=== PATIENT | female | born 1965 | race Caucasian/White ===

== ENCOUNTER → 2018-05-28 | Outpatient (CLI) | payer BC ==
[~2018-05-28] MED LIST: ESTR1TAB24; NAPR550T PO; NAPROXEN; ORPH100T PO
--- NOTE | 2018-05-28 12:38 | Diagnostic Imaging Report ---
INDICATION: Routine screening. COMPARISON: 01/08/2012. TECHNIQUE: 2D and 3D bilateral screening mammography was performed with CAD. FINDINGS: Scattered fibroglandular densities are identified bilaterally. The parenchymal pattern is stable. No dominant mass or malignant appearing microcalcifications are seen. The circumscribed benign nodule in the upper outer left breast is stable. The axillae are unremarkable. IMPRESSION: No mammographic features suspicious for malignancy are identified. ACR BI-RADS Category 2: Benign findings. Result letter will be mailed to the patient. Note: At least 10% of breast cancer is not imaged by mammography. Dictated by: Dictated on workstation # [id number]
== END ==
LOC: RAD 07:31
PROVIDERS: ATTEND Registered Nurse
DX: Z12.31 Encounter for screening mammogram for malignant neoplasm of breast (principal)
CPT/HCPCS: 77067

== ENCOUNTER 2019-05-26 05:33 | Outpatient (CLI) | payer BC ==
[~2019-05-26] VITALS: Ht 152.4 cm; Wt 104.1 kg
[2019-05-26] MEDS ORDERED: DULO20CA19 PO (13:18)
[2019-05-26] MEDS ORDERED: CHOL200014 PO (13:18)
[2019-05-26] MEDS ORDERED: CYAN-41 PO (13:18)
[2019-05-26] MEDS ORDERED: FAMO20TA3 PO (13:18)
== END 2019-05-26 13:21 ==
LOC: PREOP 05:33
PROVIDERS: ATTEND Surgery
DX: Z01.818 Encounter for other preprocedural examination (principal)

== ENCOUNTER 2019-06-02 07:13 | Day surgery (SDC) | payer BC ==
[~2019-06-02] VITALS: Ht 152.4 cm; Wt 104.1 kg
[2019-06-02] VITALS (9 sets, daily range): BP systolic 126–141; BP diastolic 76–82
[~2019-06-02 07:13] MED LIST changes: +CHOL200014 PO; +CYAN-41 PO; +DULO20CA19 PO; +FAMO20TA3 PO
[2019-06-02] MEDS ORDERED: MIDAZOLAM 2 MG/2 ML (VERSED) VIAL ONE (07:26)
[2019-06-02] MEDS ORDERED: PROPOFOL INJECTION 50 ML IV ONE (07:26)
[2019-06-02] MEDS ORDERED: LACTATED RINGERS 1,000 ML IV ONE (07:44)
[2019-06-02] MEDS ORDERED: LACTATED RINGERS 1,000 ML IV PRN (08:00)
--- NOTE | 2019-06-02 08:13 | Progress Note-Pre Operative ---
Pre-Operative Progress Note H&P Reviewed The H&P was reviewed, patient examined and no changes noted. Time Seen by Provider: 08:07 Date H&P Reviewed: Jun 02, 2019 Time H&P Reviewed: 08:06 Pre-Operative Diagnosis: Screening colonoscopy ESTEE VILLELA DO Jun 02, 2019 08:13 POS
--- NOTE | 2019-06-02 10:10 | Progress Note-Post Operative ---
Post-Operative Progess Note Surgeon (s)/Director Camp (s) Surgeon ESTEE VILLELA DO Director Camp: AVERY Baum Pre-Operative Diagnosis Screening colonoscopy Post-Operative Diagnosis Colon polyps diverticula Internal hemorrhoids Procedure & Operative Findings Date of Procedure 06/02/19 Procedure Performed/Findings Colon with snare Anesthesia Type IV sedation by TAR LEVELER Estimated Blood Loss Estimated blood loss (mL): scant Specimens/Packing Specimens Removed Asc colon Desc colon Sigmoid polyp ESTEE VILLELA DO Jun 02, 2019 10:10 POS
--- NOTE | 2019-06-02 10:11 | Endoscopy Discharge Instruct ---
Endo Procedure/Findings Findings 1.: Polyp 2.: Diverticulosis 3.: Internal Hemorrhoids Discharge Instructions - Activity: You might feel a little sleepy until tomorrow. This is due to the medicine you received to relax you. Until tomorrow, you should: NOT drive a car, operate machinery or power tools. NOT drink any alcoholic beverages. NOT make any important decisions or sign importortant papers. Do not return to work until tomorrow, unless otherwise instructed. Resume previous activities tomorrow. Diet: Start by taking liquids. If you tolerate liquids, advance to solid food. make appt for 2 weeks. 1.: Colonoscopy in 1 year Notify Physician - If you experience excessive bleeding, unusual abdominal pain, fever, or chest pain, contact your doctor immediately. ESTEE VILLELA DO Jun 02, 2019 10:11 POS
--- NOTE | 2019-06-02 14:09 | Anesthesia-General Post-Op ---
MAC Patient Condition Mental Status/LOC: Same as Preop Cardiovascular: Satisfactory Nausea/Vomiting: Absent Respiratory: Satisfactory Pain: Controlled Complications: Absent Post Op Complications Complications None Follow Up Care/Instructions Patient Instructions None needed. Anesthesiology Discharge Order Discharge Order Patient is doing well, no complaints, stable vital signs, no apparent adverse anesthesia problems. No complications reported per nursing. MONSTER LANGE CRNA Jun 02, 2019 14:09 POS
--- NOTE | 2019-06-03 03:44 | OPERATIVE REPORT ---
DATE OF SERVICE: PREOPERATIVE DIAGNOSES: History of colon polyps. POSTOPERATIVE DIAGNOSES: 1. Colon polyps. 2. Diverticular. 3. Internal hemorrhoids. PROCEDURE PERFORMED: Colonoscopy with snare polypectomy. SURGEON: José Manuel Fernandez DO ANESTHESIA: IV sedation by CHEMICAL ECONOMIST. SPECIMEN: One polyp from the ascending colon, one polyp from the descending colon and one polyp from the sigmoid colon. BLOOD LOSS: Scant. FLUIDS: Per anesthesia. POSTOPERATIVE CONDITION: Stable. INDICATION FOR PROCEDURE: The patient is a 53-year-old female who has a history of colon polyps, needed a surveillance colonoscopy. FINDINGS: The patient had one large polyp in the sigmoid colon. She had another large polyp in the ascending colon and another flat polyp in the descending colon as well as diverticula and some internal hemorrhoids. PROCEDURE NOTE: After informed consent was obtained, the patient was brought to the endoscopy suite and placed in the left lateral decubitus position. She was administered IV sedation by the CHEMICAL ECONOMIST who then monitored her vitals the entire time, heart rate, blood pressure and pulse ox and the scope was inserted. On the way, noted a large polyp in the sigmoid, elected to leave this for last and continued on, saw some diverticula on the way and took a picture of this and then able to get all the way to cecum, took a picture of appendiceal orifice, noted the ileocecal valve and then slowly withdrew the scope insufflating to look circumferentially at the tristan looking at the cecum and then up the ascending colon. In the ascending colon, saw another small polyp, did a snare polypectomy of this and then continued up to the hepatic flexure, then down the transverse colon and into the splenic flexure and then into the descending colon. In the descending colon, saw another polyp, did snare polypectomy of this and then continued down to the sigmoid, saw a large polyp again and had to take this in 2 bites because it was so big and then had to pull the scope all the way out to remove one of the polyps wouldn't suction up the channel and then pushed the scope back in and then pulled back slowly from the sigmoid into the rectum. Retroflexed in rectal vault, saw some minimal internal hemorrhoids, took a picture of this and then removed the scope. The patient tolerated the procedure, recovered in endoscopy suite. Job ID: [id number] DocumentID: [id number] Dictated Date: 06/02/2019 18:25:25 Mechanical Insulator Date: 06/03/2019 03:43:32 Dictated By: DO ELIN COULTER
--- OUTSIDE RECORDS SUMMARY | 2019-06-27 06:43 | XMS REPORT ---
Author Author Pilar [facility] Organization [facility] Address [address] [place] [address] Care Team Providers Care Rail Bender Name Role Phone BLAISEAida ELOISAMAYRA Unavailable PROBLEMS Type Condition ICD9-CM Code [id number] Code Onset Dates Condition S tatus SNOMED Code Problem Obesity (BMI 30-39.9) E66.9 Active 318848040 ALLERGIES No Known Allergies ENCOUNTERS Encounter Location Date Diagnosis [facility] [id number] [place] [address], [place] [id number] May, Obesity (BMI 30-39.9) E66.9 ; Tinea ungu ium B35.1 and Callus L84 [facility] [address] [address] Sep, [facility] [address] [address] Sep, [facility] [id number] [place] [address], [place] [id number] October, [facility] [id number] [place] [address], [place] [id number] Jun, [facility] [id number] [place] [address], [place] [id number] Jun, [facility] [id number] [place] [address], [place] [id number] May, [facility] [address] [address] May, [facility] [id number] [place] [phone] May, [facility] [id number] [place] [address], [place] [id number] May, [facility] [address] [facility] [id number] [address] [place] [phone] May, [facility] [address] [facility] [id number] [address] [place] [phone] May, [facility] [address] [id number] [place] [id number] May, [facility] [address] [id number] [address] [place] [phone] May, [facility] [address] [id number] [place], [place] [id number] Jan, [facility] [address] [id number] [place], [place] [id number] Jan, [facility] [address] [id number] [place], [place] [id number] Dec, [facility] [address] [id number] [place], [place] [id number] Dec, [facility] [address] [id number] [place], [place] [id number] Dec, [facility] [address] [id number] [place], [place] [id number] Dec, [facility] [address] [id number] [place], [place] [id number] Nov, [facility] [address] [id number] [place], [place] [id number] Jun, [facility] [address] [facility] [id number] [address] [place] [phone] May, [facility] [address] [facility] [id number] [address] [place] [phone] Apr, [facility] [address] [facility] [id number] [address] [place] [phone] Apr, [facility] [address] [facility] [id number] [address] [place] [phone] Apr, [facility] [address] [facility] [id number] [address] [place] [phone] Apr, [facility] [address] [facility] [id number] [address] [place] [phone] May, [facility] [address] [facility] [id number] [address] [place] [phone] Mar, IMMUNIZATIONS No Known Immunizations SOCIAL HISTORY Never Assessed REASON FOR VISIT Establish Care- Infection to left thumb nail, on-going since summer, Pt had what felt like a sting on left side 3 weeks, continues to have throbbing on that si Ramachandran MA PLAN OF CARE Activity Details Follow Up prn and as indicated by lab Reason: VITAL SIGNS Height 60 in 2017-05-29 Weight 199.4 lbs 2017-05-29 Temperature 97.4 degrees Fahrenheit 2017-05-29 Heart Rate 78 bpm 2017-05-29 Respiratory Rate 16 2017-05-29 BMI 38.94 kg/m2 2017-05-29 Blood pressure systolic 124 mmHg 2017-05-29 Blood pressure diastolic 78 mmHg 2017-05-29 MEDICATIONS Medication Instructions Dosage Frequency Start Date End Date Duration S tatus Omeprazole Magnesium 20 mg take 1 capsule by Oral rout e 1 time per day May, Active RESULTS No Results PROCEDURES Procedure Date Ordered Result Body Site COMPLETE CBC W/AUTO DIFF WBC May 29, 2017 LIPID PANEL May 29, 2017 COMPREHEN METABOLIC PANEL May 29, 2017 VENIPUNCT, ROUTINE* May 29, 2017 ASSAY THYROID STIM HORMONE May 29, 2017 INSTRUCTIONS MEDICATIONS ADMINISTERED No Known Medications MEDICAL (GENERAL) HISTORY Type Description Date Surgical History tonsillectomy and adenoidectomy Surgical History partial hysterectomy Surgical History oopherectomy Surgical History appendectomy Surgical History section
--- OUTSIDE RECORDS SUMMARY | 2019-06-27 06:43 | XMS REPORT ---
Author Author Pilar Bazzi Doctor Organization [facility] Address Unknown Phone Unavailable Care Team Providers Care Wildlife Officer Name Role Phone Migration, Doctor Unavailable Unavailable PROBLEMS Type Condition ICD9-CM Code [id number] Code Onset Dates Condition S tatus SNOMED Code Problem Obesity (BMI 30-39.9) E66.9 Active 884682425 ALLERGIES No Information ENCOUNTERS Encounter Location Date Diagnosis [facility] [id number] [place] [address], [place] [id number] Apr, Breast cancer screening Z12.31 [facility] [id number] [place] [address], [place] S [id number] May, Obesity (BMI 30-39.9) E66.9 ; Tinea ungu ium B35.1 and Callus L84 [facility] [address] [address] Sep, [facility] [address] [address] Sep, [facility] [id number] [place] [address], [place] [id number] October, [facility] [id number] [place] [address], [place] [id number] Jun, [facility] [id number] [place] [address], [place] S [id number] Jun, [facility] [id number] [place] [address], [place] [id number] May, [facility] [id number] [place] [phone] May, [facility] [address] [id number] [address] [place] [phone] May, [facility] [id number] [place] [address], [place] [id number] May, [facility] [address] [id number] [address] [place] [phone] May, [facility] [address] [id number] [address] [place] [phone] May, [facility] [address] [id number] [place] [id number] May, [facility] [address] [id number] [address] [place] [phone] May, [facility] [address] [id number] [place], [place] [id number] Jan, [facility] [address] [id number] [place], [place] [id number] Jan, [facility] [address] [id number] [place], [place] [id number] Dec, [facility] [address] [id number] [place], [place] [id number] Dec, [facility] [address] [id number] [place], [place] [id number] Dec, [facility] [address] [id number] [place], [place] [id number] Dec, [facility] [address] [id number] [place], [place] [id number] Nov, [facility] [address] [id number] [place], [place] [id number] Jun, [facility] [address] [facility] [id number] [address] [place] [phone] May, [facility] [address] [facility] [id number] [address] [place] [phone] 30 Apr, 2011 [facility] [address] [facility] [id number] [address] [place] [phone] Apr, [facility] [address] [facility] [id number] [address] [place] [phone] Apr, [facility] [address] [facility] [id number] [address] [place] [phone] Apr, [facility] [address] [facility] [id number] [address] [address] May, [facility] [address] [facility] [id number] [address] [place] [phone] Mar, IMMUNIZATIONS No Known Immunizations SOCIAL HISTORY Never Assessed REASON FOR VISIT EMR-[facility] PLAN OF CARE VITAL SIGNS MEDICATIONS Medication Instructions Dosage Frequency Start Date End Date Duration S tatus Celexa 40 mg take 1 tablet (40 mg) by oral route once daily October, Active Omeprazole Magnesium 20 mg take 1 capsule by Oral rout e 1 time per day May, Active RESULTS No Results PROCEDURES No Known procedures INSTRUCTIONS MEDICATIONS ADMINISTERED No Known Medications MEDICAL (GENERAL) HISTORY Type Description Date Medical History Heartburn Medical History Disturbance of skin sensation Medical History Cervical spondylosis without myelopathy Medical History Obesity, unspecified Medical History Pain in joint, site unspecified Surgical History tonsillectomy and adenoidectomy Surgical History partial hysterectomy Surgical History oopherectomy Surgical History appendectomy Surgical History section
--- OUTSIDE RECORDS SUMMARY | 2019-06-27 06:43 | XMS REPORT ---
Author Author Pilar Bazzi Doctor Organization [facility] Address Unknown Phone Unavailable Care Team Providers Care Medical Physics Teacher Name Role Phone Migration, Doctor Unavailable Unavailable PROBLEMS Type Condition ICD9-CM Code ZKE37-FD Code Onset Dates Condition S tatus SNOMED Code Problem Obesity (BMI 30-39.9) E66.9 Active 449722326 ALLERGIES No Information ENCOUNTERS Encounter Location Date Diagnosis [facility] [id number] [place] [address], [place] [id number] Apr, Breast cancer screening Z12.31 [facility] [id number] [place] [address], [place] [id number] May, Obesity (BMI 30-39.9) E66.9 ; Tinea ungu ium B35.1 and Callus L84 [facility] [place] [address] [address] Sep, [facility] [place] [address] [id number] Sep, [facility] [id number] [place] [address], [place] S [id number] October, [facility] [id number] [place] [address], [place] S [id number] Jun, [facility] [id number] [place] [address], [place] S [id number] Jun, [facility] [id number] [place] [address], [place] S [id number] May, [facility] [place] [id number] [place] [address] May, [facility] [place] [address] [id number] [address] [place] [address] May, [facility] [id number] [place] [address], [place] [id number] May, [facility] [address] [id number] [address] [place] [phone] May, [facility] [address] [id number] [address] [place] [phone] May, [facility] [address] [id number] [place], [place] [id number] May, [facility] [address] [id number] [address] [place] [phone] May, [facility] [address] [id number] [place], [place] [id number] Jan, [facility] [address] [id number] [place], [place] [id number] Jan, [facility] [address] [id number] [place], [place] [id number] Dec, [facility] [address] [id number] [place], [place] [id number] Dec, [facility] [address] [id number] [place], [place] [id number] Dec, [facility] [address] [id number] [place], [place] [id number] Dec, [facility] [address] [id number] [place], [place] [id number] Nov, [facility] [address] [id number] [place], [place] [id number] Jun, [facility] [address] [facility] [id number] [address] [place] [phone] May, [facility] [address] [facility] [id number] [address] [place] [phone] 30 Apr, 2011 [facility] [address] [facility] [id number] [address] [place] [phone] Apr, [facility] [address] [facility] [id number] [address] [place] [phone] Apr, [facility] [address] [facility] [id number] [address] [place] [phone] Apr, [facility] [place] [address] [facility] [id number] [address] [place] [phone] May, [facility] [place] [address] [facility] [id number] [address] [place] [phone] Mar, IMMUNIZATIONS No Known Immunizations SOCIAL HISTORY Never Assessed REASON FOR VISIT EMR-[facility] PLAN OF CARE VITAL SIGNS MEDICATIONS No Known Medications RESULTS No Results PROCEDURES No Known procedures [...]
--- OUTSIDE RECORDS SUMMARY | 2019-06-27 06:43 | XMS REPORT ---
Author Author Pilar GRECO [facility] Address [address] [place] [address] Care Team Providers Care Director Medicaid Name Role Phone WANG GRECO Unavailable PROBLEMS Type Condition ICD9-CM Code TTY35-FZ Code Onset Dates Condition S tatus SNOMED Code Problem Obesity (BMI 30-39.9) E66.9 Active 239677721 ALLERGIES No Known Allergies ENCOUNTERS Encounter Location Date Diagnosis [facility] [id number] [place] [address], S [id number] Apr, Breast cancer screening Z12.31 [facility] [address], S [id number] May, Obesity (BMI 30-39.9) E66.9 ; Tinea ungu ium B35.1 and Callus L84 [facility] [address] [id number] Sep, [facility] [id number] [place] [phone] Sep, [facility] [id number] [place] [address], [place] [id number] October, [facility] [id number] [place] [address], [place] S [id number] Jun, [facility] [id number] [place] [address], [place] S [id number] Jun, [facility] [id number] [place] [address], [place] S [id number] May, [facility] [id number] [place] [phone] May, [facility] [id number] [place] [phone] May, [facility] [address] [id number] [place], [place] [id number] May, [facility] [address] [facility] [id number] [address] [place] [phone] May, [facility] [address] [facility] [id number] [address] [place] [phone] May, [facility] [address] [id number] [place], [place] [id number] May, [facility] [address] [id number] [address] [place] [phone] May, [facility] [address] [id number] [place], [place] [id number] Jan, [facility] [address] [id number] [place], [place] [id number] Jan, [facility] [address] [id number] [place], [place] [id number] Dec, [facility] [address] [id number] [place], [place] [id number] Dec, [facility] [address] [id number] [place], [place] [id number] Dec, [facility] [address] [id number] [place], [place] [id number] Dec, [facility] [address] [id number] [place], [place] [id number] Nov, [facility] [address] [id number] [place], [place] [id number] Jun, [facility] [address] [facility] [id number] [address] [place] [phone] May, [facility] [address] [facility] [id number] [address] [place] [phone] 30 Apr, 2011 [facility] [address] [facility] [id number] [address] [place] [phone] Apr, [facility] [address] [facility] [id number] [address] [place] [phone] Apr, [facility] [address] [facility] [id number] [address] [place] [phone] 07 Apr, 2011 [facility] [address] [facility] [id number] [address] [place] [id number] 17 May, 2010 [facility] [address] [facility] [id number] [address] [place] [id number] 13 Mar, 2010 IMMUNIZATIONS No Known Immunizations SOCIAL HISTORY Never Assessed REASON FOR VISIT Well Woman Exam- breast exam Corina GALICIA PLAN OF CARE Activity Details Follow Up pending DI/1 Year, prn Reaso n:WWE Pending Test Mammogram, Bilateral Screeni ng VITAL SIGNS Height 60 in 2018-05-20 Weight 187 lbs 2018-05-20 Temperature 97.2 degrees Fahrenheit 2018-05-20 Heart Rate 72 bpm 2018-05-20 Respiratory Rate 16 2018-05-20 BMI 36.52 kg/m2 2018-05-20 Blood pressure systolic 128 mmHg 2018-05-20 Blood pressure diastolic 78 mmHg 2018-05-20 MEDICATIONS No Known Medications RESULTS No Results [...]
== END 2019-06-02 10:30 | disposition home or self-care (01) ==
LOC: ENDO 07:13
PROVIDERS: ATTEND Surgery
DX: Z12.11 Encounter for screening for malignant neoplasm of colon (principal); D12.5 Benign neoplasm of sigmoid colon; K63.5 Polyp of colon; K57.30 Diverticulosis of large intestine without perforation or abscess without bleeding; K64.8 Other hemorrhoids; K21.9 Gastro-esophageal reflux disease without esophagitis; F17.210 Nicotine dependence, cigarettes, uncomplicated; Z90.89 Acquired absence of other organs; Z90.710 Acquired absence of both cervix and uterus; Z79.899 Other long term (current) drug therapy; Z82.49 Family history of ischemic heart disease and other diseases of the circulatory system
CPT/HCPCS: 88305

== ENCOUNTER → 2019-07-16 | Outpatient (CLI) | payer BC ==
--- NOTE | 2019-07-16 09:19 | Diagnostic Imaging Report ---
Indication: Routine screening. Comparison is made with prior mammogram from 05/28/2018. 2-D and 3-D bilateral screening mammography was performed with CAD. Scattered fibroglandular densities are identified bilaterally. Circumscribed lesion in the retroareolar left breast is stable. No new mass or malignant appearing microcalcifications are seen. Axillae are unremarkable. IMPRESSION: BI-RADS Category 2 No mammographic features suspicious for malignancy are identified. ACR BI-RADS Category 2: Benign findings. Result letter will be mailed to the patient. Note: At least 10% of breast cancer is not imaged by mammography. Dictated by: Dictated on workstation # [id number]
== END ==
LOC: RAD 07:44
PROVIDERS: ATTEND Registered Nurse
DX: Z12.31 Encounter for screening mammogram for malignant neoplasm of breast (principal)
CPT/HCPCS: 77067

== ENCOUNTER → 2020-07-19 | Outpatient (CLI) | payer BC ==
--- NOTE | 2020-07-19 15:21 | Diagnostic Imaging Report ---
INDICATION: Routine screening. COMPARISON: 07/16/2019 and 05/28/2018. TECHNIQUE: 2D and 3D bilateral screening mammography was performed with CAD. FINDINGS: Scattered fibroglandular densities are identified bilaterally. The parenchymal pattern is stable. No dominant mass or malignant appearing microcalcifications are seen. The axillae are unremarkable. IMPRESSION: No mammographic features suspicious for malignancy are identified. ACR BI-RADS Category 1: Negative. Result letter will be mailed to the patient. Note: At least 10% of breast cancer is not imaged by mammography. Dictated by: Dictated on workstation # [id number]
== END ==
LOC: RAD 09:16
PROVIDERS: ATTEND Student in an Organized Health Care Education/Training Program
DX: Z12.31 Encounter for screening mammogram for malignant neoplasm of breast (principal)
CPT/HCPCS: 77063; 77067

== ENCOUNTER → 2021-07-20 | Outpatient (CLI) | payer BC ==
--- NOTE | 2021-07-20 11:51 | Diagnostic Imaging Report ---
Indication: Routine screening. Comparison is made with prior mammogram from 07/19/2020 and 07/16/2019. 2-D and 3-D bilateral screening mammography was performed with CAD. Scattered fibroglandular densities are identified bilaterally. The parenchymal pattern is stable. No mass or malignant-appearing microcalcifications are seen. Axillae are unremarkable. IMPRESSION: BI-RADS Category 1 No mammographic features suspicious for malignancy are identified. ACR BI-RADS Category 1: Negative. Result letter will be mailed to the patient. Note: At least 10% of breast cancer is not imaged by mammography. Dictated by: Dictated on workstation # [id number]
== END ==
LOC: RAD 10:00
PROVIDERS: ATTEND Student in an Organized Health Care Education/Training Program
DX: Z12.31 Encounter for screening mammogram for malignant neoplasm of breast (principal)
CPT/HCPCS: 77063; 77067

== ENCOUNTER 2021-10-03 05:32 | Outpatient (CLI) | payer BC ==
[~2021-10-03] VITALS: Ht 152.4 cm; Wt 103.5 kg
[2021-10-03] MEDS ORDERED: OMEG-109 PO (10:10)
[2021-10-03] MEDS ORDERED: LACT1CAP39 PO (10:10)
[2021-10-03] MEDS ORDERED: ERGO1250 PO (10:10)
[2021-10-03] MEDS ORDERED: MELO-170 PO (10:10)
[2021-10-05] MEDS ORDERED: ACHD5005 PO (17:17)
== END 2021-10-03 10:23 ==
LOC: PREOP 05:32
PROVIDERS: ATTEND Surgery
DX: Z01.818 Encounter for other preprocedural examination (principal)

== ENCOUNTER 2021-10-05 10:53 | Day surgery (SDC) | payer BC ==
[2021-10-05] VITALS (10 sets, daily range): BP systolic 115–136; BP diastolic 60–81
[~2021-10-05] VITALS: Ht 152.4 cm; Wt 103.5 kg
[~2021-10-05 10:53] MED LIST changes: +ERGO1250 PO; +LACT1CAP39 PO; +MELO-170 PO; +OMEG-109 PO
[2021-10-05] MEDS ORDERED: ceFAZolin 2 GM IV Premixed 50 ML ONE (11:19)
[2021-10-05] MEDS: LACTATED RINGERS 1,000 ML IV PRN ×2 (11:20→16:46)
[2021-10-05] MEDS ORDERED: ceFAZolin 2 GM IV Premixed 50 ML IV ONE (11:45)
[2021-10-05] MEDS ORDERED: LIDOCAINE/EPI 2% 1:100,00 (XYLOCAINE) 20 ML VIAL ONE (12:11)
[2021-10-05] MEDS ORDERED: IOHEXOL 300 MG/ML 30 ML (OMNIPAQUE 300) VIAL INJ ONE (12:30)
[2021-10-05] MEDS ORDERED: GLYCOPYRROLATE 0.2 MG/ML (ROBINUL) 2 ML VIAL ONE (14:34)
[2021-10-05] MEDS ORDERED: proPOfol 200 MG/20 ML (DIPRIVAN) VIAL IV ONE (14:34)
[2021-10-05] MEDS ORDERED: ROCURONIUM 10 MG/ML 5 ML SYRINGE IV ONE (14:34)
[2021-10-05] MEDS ORDERED: fentaNYL INJ 100 MCG/2 ML AMP ONE (14:34)
[2021-10-05] MEDS ORDERED: LIDOCAINE PF 2% 5 ML (XYLOCAINE) VIAL ONE (14:34)
[2021-10-05] MEDS ORDERED: NEOSTIGMINE 3 MG/3 ML VIAL ONE (14:34)
[2021-10-05] MEDS ORDERED: MIDAZOLAM 2 MG/2 ML (VERSED) VIAL ONE (14:34)
[2021-10-05] MEDS ORDERED: ONDANSETRON 4 MG/2 ML (SDV) Z0FRAN ONE (14:34)
--- NOTE | 2021-10-05 15:56 | Progress Note-Pre Operative ---
Pre-Operative Progress Note H&P Reviewed The H&P was reviewed, patient examined and no changes noted. Time Seen by Provider: 15:53 Date H&P Reviewed: Oct 05, 2021 Time H&P Reviewed: 15:53 Pre-Operative Diagnosis: cholelithiasis/Cholecystitis ESTEE VILLELA DO Oct 05, 2021 15:56
[2021-10-05] MEDS ORDERED: ACHD5005 PO (17:17)
[2021-10-05] MEDS ORDERED: SEVOFLURANE (ULTANE) 15 ML INHAL SOLN ONE (17:17)
--- NOTE | 2021-10-05 17:17 | Progress Note-Post Operative ---
Post-Operative Progess Note Surgeon (s)/Pump Press Operator (s) Surgeon ESTEE VILLELA DO Pump Press Operator: [place] Pre-Operative Diagnosis cholelithiasis/Cholecystitis Post-Operative Diagnosis same Procedure & Operative Findings Date of Procedure 10/05/21 Procedure Performed/Findings PROCEDURE: Laparoscopic cholecystectomy with intraoperative cholangiogram. COMPLICATIONS: None. PROCEDURE: The patient was taken to the operating suite and was prepped and draped in sterile fashion. A surgical pause was performed. Just superior to the umbilicus, a 12 mm incision was made. Dissection was taken down to the fascia, which was then scored and grasped with a Ruthie and the abdomen was then entered. An 0 Vicryl suture was placed in a ymfmae-kf-szpda fashion and a Navarro trocar was placed and secured. Pneumoperitoneum was achieved. A 5mm trochar place in the subxyphoid and 2 in the right upper quadrant. The gallbladder was then grasped at the fundus and elevated superiorly. Then grabbed down at Benitez's pouch and pulled in an infero-lateral direction. The cystic duct, and cystic artery were then dissected out. Clip was placed on the distal portion of the cystic duct which was then partially transected. An arrow catheter was inserted into the duct. The cholangiogram was then performed. No filing defects and contrast made its way into the duodenum. Catheter removed. Clips were placed on proximal portion of the cystic duct and then the duct was then transected. Clips were placed along the proximal and distal portion of the cystic artery which was then transected. Hook cautery was used to dissect the gallbladder from the gallbladder fossa achieving hemostasis. The gallbladder was placed in an Endobag and removed through the 12 mm trocar site. The abdomen was then reinspected. Copious amounts of irrigation were used to irrigate the abdomen and there were no signs of active bleeding. Hemostasis had been achieved. The 12 mm fascial defect was then closed with 0 Vicryl suture that had been placed in a obelqh-sx-macdh fashion. The abdomen was then desufflated, the trocars were removed. The abdomen was then washed and dried. The skin was then closed using 4-0 Monocryl in a subcuticular fashion. The abdomen was washed and dried and Skin Affix was place over incisions. Patient tolerated the procedure well without any complications and was taken to the recovery room in stable condition. Dr. Sheehan assisted on this case helping to make incisions, close incisions, identify anatomy and hold anatomy out of the way. Anesthesia Type GET Estimated Blood Loss Estimated blood loss (mL): scant Specimens/Packing Specimens Removed GB and contents ESTEE VILLELA DO Oct 05, 2021 17:16
--- NOTE | 2021-10-05 17:19 | Discharge Inst-Surgical ---
Discharge Inst-Surgical Depart Medication/Instructions New, Converted or Re-Newed RX: Transmitted to Pharmacy Patient Instructions Follow up Appt: Make appointment for 1 week. [phone] Instructions: No lifting greater than 20 pounds. No strenuous activity. May shower in 24 hours, no tub bath or soaking. Use incentive spirometer at home as directed. No Smoking Skin/Wound Care: May remove bandages in am. You need to leave the Dermabond on incision it will fall off on it's own. Symptoms to Report: Appetite Changes, Extremity Discoloration, Numbness/Tingling, Swelling Increased, Bleeding Excessive, Eyesight Changes, Pain Increased, Urine Color Change, Constipation(Persistent), Fever over 101 degree F, Pain/Pressure in chest, Urinating Difficulty, Cough Up/Vomit Blood, Heart Beat Irreg/Pounding, Pain/Pressure in jaw, Cramps in feet or legs, Lightheadedness, Pain/Pressure in shoulder, Diarrhea(Persistent), Memory Changes Suddenly, Questions/Concerns, Weight gain consecutive days, Dizziness/Fainting, Nausea/Vomiting, Shortness of Breath, Weight gain over 2 pounds If questions or concerns contact your physician Or seek help at emergency department. Activity Activity as Tolerated: Yes Activity Instructions: Avoid Stress to Incision Driving Instructions: No Driving/Refer to Diet Discharge Diet: Avoid Fatty Foods, Low Fat/Low Cholesterol Diet After 24 Hours: Clear Liquid if Nauseous If Any Problems/Questions/Issu: Contact Your Physician, Go to Emergency Room Skin/Wound Care Infection Signs and Symptoms: Increased Redness, Foul Odor of Wound, Increased Drainage, Skin Itchy or Has a Rash, Increased Swelling, Temperature Above 101 F Wound Care Comment: heating pad to shoulder or neck for pain Bathing Instructions: Shower Stitches/Kadeem/Dermabond Dis: Dermabond ESTEE VILLELA DO Oct 05, 2021 17:19
[2021-10-05] MEDS ORDERED: PROMETHAZINE INJ 25 MG/ML (PHENERGAN) AMP IVP ONE (17:30)
[2021-10-05] MEDS ORDERED: fentaNYL INJ 100 MCG/2 ML AMP IVP ONE (17:30)
[2021-10-05] MEDS ORDERED: ONDANSETRON 4 MG/2 ML (SDV) Z0FRAN IVP PRN (17:30)
[2021-10-05] MEDS ORDERED: HYDROmorphone 2 MG/ML VIAL (DILAUDID) IV ONE (17:30)
[2021-10-05] MEDS ORDERED: MEPERIDINE (DEMEROL) INJ 50 MG/ML IVP ONE (17:30)
[2021-10-05] MEDS ORDERED: HYDROmorphone 2 MG/ML VIAL (DILAUDID) ONE (17:42)
--- NOTE | 2021-10-05 17:50 | Diagnostic Imaging Report ---
INDICATION: Intraoperative cholecystectomy. EXAMINATION: Cholecystectomy, fluoroscopic evaluation, 10/05/2021. FINDINGS: This is a limited intraoperative evaluation with multiple fluoroscopic images provided. 1.5 seconds fluoroscopy time used. There is focal narrowed appearance to the distal common duct with strictures not excluded, correlate with recent surgical examination. No persistent filling defects are appreciated. There is no complete obstruction as contrast is seen within the proximal small bowel. IMPRESSION: Focal narrowing of distal common duct perhaps due to a stricture, correlate with procedure. Please see the separate surgical report. Dictated by: Dictated on workstation # [id number]
[2021-10-05] MEDS ORDERED: HYDROcodone/APAP 5 MG/325 MG (LORTAB) TAB PO ONE ×2 (18:30→20:00)
[2021-10-05] MEDS ORDERED: HYDROcodone/APAP 5 MG/325 MG (LORTAB) TAB ONE ×2 (18:34→19:52)
--- NOTE | 2021-10-05 19:04 | Anesthesia-General Post-Op ---
General Patient Condition Mental Status/LOC: Same as Preop Cardiovascular: Satisfactory Nausea/Vomiting: Absent Respiratory: Satisfactory Pain: Controlled Complications: Absent Post Op Complications Complications None Follow Up Care/Instructions Patient Instructions None needed. Anesthesia/Patient Condition Patient Condition Patient is doing well, no complaints, stable vital signs, no apparent adverse anesthesia problems. No complications reported per nursing. CATIE GUILLERMO CRNA Oct 05, 2021 19:04
== END 2021-10-05 20:15 | disposition home or self-care (01) ==
LOC: SDC 10:53
PROVIDERS: ATTEND Surgery
DX: K80.11 Calculus of gallbladder with chronic cholecystitis with obstruction (principal); K21.9 Gastro-esophageal reflux disease without esophagitis; D13.5 Benign neoplasm of extrahepatic bile ducts; E66.01 Morbid (severe) obesity due to excess calories; Z68.41 Body mass index [BMI] 40.0-44.9, adult; Z87.891 Personal history of nicotine dependence
CPT/HCPCS: 76000; 82947; 87081; 88304

== ENCOUNTER 2022-03-24 05:42 | Outpatient (CLI) | payer BC ==
[~2022-03-24] VITALS: Ht 152.4 cm; Wt 86.8 kg
[~2022-03-24 05:42] MED LIST changes: +ACHD5005 PO
[2022-03-24] MEDS ORDERED: HYPR10GE5 OP (14:42)
[2022-03-24] MEDS ORDERED: CARB10DR5 OP (14:42)
[2022-03-24] MEDS ORDERED: ZINC50TA51 PO (14:42)
[2022-03-24] MEDS ORDERED: CHOL500044 PO (14:42)
== END 2022-03-24 14:52 | disposition home or self-care (01) ==
LOC: PREOP 05:42
PROVIDERS: ATTEND Specialist
DX: Z01.818 Encounter for other preprocedural examination (principal)

== ENCOUNTER 2022-03-31 10:52 | Day surgery (SDC) | payer BC ==
[~2022-03-31] VITALS: Ht 152.4 cm; Wt 86.8 kg
[~2022-03-31 10:52] MED LIST changes: +CARB10DR5 OP; +CHOL500044 PO; +HYPR10GE5 OP; +ZINC50TA51 PO
[2022-03-31] MEDS ORDERED: TIMOLOL MALEATE 0.5% 5 ML (TIMOPTIC) BTL OU PRN (11:15)
[2022-03-31] MEDS ORDERED: MOXIFLOXACIN OPHTH SOLN 5 MG/ML 0.3 ML SYRINGE OP ONE (11:15)
[2022-03-31] MEDS ORDERED: POVIDONE (BETADINE) OPHTH SOLN 5% 30 ML OP ONE (11:15)
[2022-03-31] MEDS: TETRACAINE 0.5% OPHTH SOLN 4 ML BTL (SINGLE DOSE ONLY) OU PRN ×4 (11:19→11:40)
[2022-03-31 11:24] VITALS: BP 151/82
[2022-03-31] MEDS: PHENYLEPHRINE 10% OPHTH (NEO-SYN) 5 ML BTL OU SCH ×3 (11:27→11:40)
[2022-03-31] MEDS: TROPICAMIDE 1% OPH SOLN (MYDRIACYL) 15 ML BTL OP SCH ×3 (11:28→11:40)
[2022-03-31] MEDS ORDERED: MIDAZOLAM 2 MG/2 ML (VERSED) VIAL ONE (11:58)
--- NOTE | 2022-03-31 12:20 | Ophthalmologist Pre-Op Note ---
Pre-Operative Progress Note H&P Reviewed The H&P was reviewed, patient examined and no changes noted. Date H&P Reviewed: Mar 31, 2022 Time H&P Reviewed: 12:20 Pre-Op Dx Cataract, Right Eye LAURA HOLGUIN MD Mar 31, 2022 12:20
--- NOTE | 2022-03-31 12:38 | Ophthalmology Operative Report ---
Cataract removal/placement IOL PREOPERATIVE DIAGNOSIS: Cataract Right Eye POSTOPERATIVE DIAGNOSIS: Cataract Right Eye PROCEDURE: Cataract removal and placement of posterior chamber implant, right eye SURGEON: Travis Holguin ANESTHESIA: Topical with sedation COMPLICATIONS: None ESTIMATED BLOOD LOSS: Minimal DESCRIPTION OF PROCEDURE: After proper informed consent was obtained, the patient, a 56 female, was taken to the Operating Room and the right eye was anesthetized with tetracaine. The right eye was then prepped and draped in the usual manner. A wire lid speculum was placed. A paracentesis was made at the left hand position. Preservative free lidocaine was injected into the anterior chamber followed by viscoelastic. A clear corneal incision was made in the temporal position. A capsulorrhexis was preformed and the central nuclear and cortical material were removed. The posterior capsule was polished and Alcon20.0 AU00T0 IOL was placed into the capsular bag. The residual viscoelastic was aspirated and balanced saline solution was injected into the anterior chamber. Moxifloxacin was injected into the anterior chamber. The wound was checked and found to be water tight. The patient tolerated the procedure well without complications. TRAVIS HOLGUIN MD Mar 31, 2022 12:38
[2022-03-31 12:44] VITALS: BP 107/82
[2022-03-31] MEDS ORDERED: acetaZOLAMIDE ER 500 MG CAP (DIAMOX SEQUELS) PO ONE (13:00)
--- NOTE | 2022-03-31 14:06 | Anesthesia-General Post-Op ---
MAC Patient Condition Mental Status/LOC: Same as Preop Cardiovascular: Satisfactory Nausea/Vomiting: Absent Respiratory: Satisfactory Pain: Controlled Complications: Absent Post Op Complications Complications None Follow Up Care/Instructions Patient Instructions None needed. Anesthesiology Discharge Order Discharge Order Patient is doing well, no complaints, stable vital signs, no apparent adverse anesthesia problems. No complications reported per nursing. CATIE GUILLERMO CRNA Mar 31, 2022 14:06
== END 2022-03-31 12:45 | disposition home or self-care (01) ==
LOC: SDC 10:52
PROVIDERS: ATTEND Specialist
DX: H25.9 Unspecified age-related cataract (principal); Z87.891 Personal history of nicotine dependence
CPT/HCPCS: 66984; V2632

== ENCOUNTER 2022-04-07 13:14 | Outpatient (CLI) | payer BC | END 2022-04-07 14:54 | LOC: PREOP 13:14 | PROVIDERS: ATTEND Specialist | DX: Z01.818 Encounter for other preprocedural examination (principal) ==

== ENCOUNTER 2022-04-14 07:58 | Day surgery (SDC) | payer BC ==
[~2022-04-14] VITALS: Ht 152.4 cm; Wt 86.8 kg
[2022-04-14] MEDS ORDERED: MOXIFLOXACIN OPHTH SOLN 5 MG/ML 0.3 ML SYRINGE OP ONE (08:00)
[2022-04-14] MEDS ORDERED: TIMOLOL MALEATE 0.5% 5 ML (TIMOPTIC) BTL OU PRN (08:00)
[2022-04-14] MEDS ORDERED: POVIDONE (BETADINE) OPHTH SOLN 5% 30 ML OP ONE (08:00)
[2022-04-14] MEDS: TETRACAINE 0.5% OPHTH SOLN 4 ML BTL (SINGLE DOSE ONLY) OU PRN ×4 (08:11→08:29)
[2022-04-14] MEDS: PHENYLEPHRINE 10% OPHTH (NEO-SYN) 5 ML BTL OU SCH ×3 (08:16→08:29)
[2022-04-14] MEDS: TROPICAMIDE 1% OPH SOLN (MYDRIACYL) 15 ML BTL OP SCH ×3 (08:17→08:29)
[2022-04-14 08:19] VITALS: BP 132/81
--- NOTE | 2022-04-14 08:46 | Ophthalmologist Pre-Op Note ---
Pre-Operative Progress Note H&P Reviewed The H&P was reviewed, patient examined and no changes noted. Date H&P Reviewed: Apr 14, 2022 Time H&P Reviewed: 08:46 Pre-Op Dx Cataract, Left Eye LAURA HOLGUIN MD Apr 14, 2022 08:46
[2022-04-14] MEDS ORDERED: MIDAZOLAM 2 MG/2 ML (VERSED) VIAL ONE (08:51)
--- NOTE | 2022-04-14 09:11 | Ophthalmology Operative Report ---
Cataract removal/placement IOL PREOPERATIVE DIAGNOSIS: Cataract Left Eye POSTOPERATIVE DIAGNOSIS: Cataract Left Eye PROCEDURE: Cataract removal and placement of posterior chamber implant, left eye SURGEON: Travis Holguin ANESTHESIA: Topical with sedation COMPLICATIONS: None ESTIMATED BLOOD LOSS: Minimal DESCRIPTION OF PROCEDURE: After proper informed consent was obtained, the patient, a 56 female, was taken to the Operating Room and the left eye was anesthetized with tetracaine. The left eye was then prepped and draped in the usual manner. A wire lid speculum was placed. A paracentesis was made at the left hand position. Preservative free lidocaine was injected into the anterior chamber followed by viscoelastic. A clear corneal incision was made in the temporal position. A capsulorrhexis was preformed and the central nuclear and cortical material were removed. The posterior capsule was polished and an Macho 19.5 AU00T0 was placed into the capsular bag. The residual viscoelastic was aspirated and balanced saline solution was injected into the anterior chamber. Moxifloxacin was injected into the anterior chamber. The wound was checked and found to be water tight. The patient tolerated the procedure well without complications. TRAVIS HOLGUIN MD Apr 14, 2022 09:11
[2022-04-14 09:15] VITALS: BP 146/87
[2022-04-14] MEDS ORDERED: acetaZOLAMIDE ER 500 MG CAP (DIAMOX SEQUELS) PO ONE (10:00)
--- NOTE | 2022-04-14 11:52 | Anesthesia-General Post-Op ---
MAC Patient Condition Mental Status/LOC: Same as Preop Cardiovascular: Satisfactory Nausea/Vomiting: Absent Respiratory: Satisfactory Pain: Controlled Complications: Absent Post Op Complications Complications None Follow Up Care/Instructions Patient Instructions None needed. Anesthesiology Discharge Order Discharge Order Patient is doing well, no complaints, stable vital signs, no apparent adverse anesthesia problems. No complications reported per nursing. KERA LEBLANC CRNA Apr 14, 2022 11:52
== END 2022-04-14 10:10 | disposition home or self-care (01) ==
LOC: SDC 07:58
PROVIDERS: ATTEND Specialist
DX: H25.9 Unspecified age-related cataract (principal); Z87.891 Personal history of nicotine dependence
CPT/HCPCS: 66984; V2632

== ENCOUNTER 2022-06-27 05:42 | Outpatient (CLI) | payer BC, OTHER ==
[~2022-06-27] VITALS: Ht 152.4 cm; Wt 86.2 kg
[2022-06-28] MEDS ORDERED: MULT-974 PO (08:15)
== END 2022-06-28 08:25 | disposition home or self-care (01) ==
LOC: PREOP 05:42
PROVIDERS: ATTEND Surgery
DX: Z01.818 Encounter for other preprocedural examination (principal)

== ENCOUNTER 2022-07-03 08:34 | Day surgery (SDC) | payer BC, OTHER ==
[~2022-07-03] VITALS: Ht 152 cm; Wt 86.2 kg
[~2022-07-03 08:34] MED LIST changes: +MULT-974 PO
[2022-07-03] MEDS ORDERED: LACTATED RINGERS 1,000 ML IV STA (08:45)
[2022-07-03 09:05] VITALS: BP 113/68
[2022-07-03] MEDS ORDERED: FLUT15.845 NS (09:19)
[2022-07-03] MEDS ORDERED: ACET325T49 PO (09:19)
--- NOTE | 2022-07-03 09:20 | Progress Note-Pre Operative ---
Pre-Operative Progress Note Date of Available H&P: Jun 06, 2022 Date H&P Reviewed: Jul 03, 2022 Time H&P Reviewed: 09:18 History & Physical: H&P Reviewed, Patient Examed, No changes noted Pre-Operative Diagnosis: Hx of polyps ESTEE VILLELA DO Jul 03, 2022 09:20
[2022-07-03] MEDS ORDERED: proPOfol 200 MG/20 ML (DIPRIVAN) VIAL IV ONE ×2 (09:41→10:08)
--- NOTE | 2022-07-03 10:20 | Progress Note-Post Operative ---
Post-Operative Progess Note Surgeon (s)/Lab Associate (s) Surgeon ESTEE VILLELA DO Lab Associate: AVERY Beard Pre-Operative Diagnosis Hx of polyps Post-Operative Diagnosis diverticula int hemorrhoids Procedure & Operative Findings Date of Procedure 07/03/22 Procedure Performed/Findings Colonoscopy PROCEDURE NOTE: After informed consent was obtained, the patient was brought to the endoscopy suite, placed in bed in left lateral decubitus position. She was administered IV sedation by the ECOLOGICAL TECHNICAL OFFICER who then monitored her vitals the entire time, heart rate, blood pressure and pulse ox and the scope was inserted, pushed all the way to about 150 cm and pushed into the cecum, took a picture of appendiceal orifice and noted the ileocecal valve. Then slowly withdrew the scope insufflating to look circumferentially at the tristan starting in the cecum, up the ascending colon to the hepatic flexure, then down the transverse colon, splenic flexure, into the descending colon down in the sigmoid and then into the rectal vault and retroflexed the scope. Took picture of the internal hemorrhoids and had taken a picture of diverticula on the way in. The patient tolerated the procedure. She was recovered in endoscopy suite. Recommended for repeat colonoscopy in 10 years. Anesthesia Type IV sedation by ECOLOGICAL TECHNICAL OFFICER Estimated Blood Loss Estimated blood loss (mL): none Specimens/Packing Specimens Removed none ESTEE VILLELA DO Jul 03, 2022 10:20
--- NOTE | 2022-07-03 10:21 | Endoscopy Discharge Instruct ---
Endo Procedure/Findings Findings 1.: Diverticulosis 2.: Internal Hemorrhoids Discharge Instructions - Activity: You might feel a little sleepy until tomorrow. This is due to the medicine you received to relax you. Until tomorrow, you should: NOT drive a car, operate machinery or power tools. NOT drink any alcoholic beverages. NOT make any important decisions or sign importortant papers. Do not return to work until tomorrow, unless otherwise instructed. Resume previous activities tomorrow. Diet: Start by taking liquids. If you tolerate liquids, advance to solid food. 1.: Colonscopy in 10 years Notify Physician - If you experience excessive bleeding, unusual abdominal pain, fever, or chest pain, contact your doctor immediately. ESTEE VILLELA DO Jul 03, 2022 10:21
[2022-07-03 10:25] VITALS: BP 102/58
[2022-07-03 10:30] VITALS: BP 102/58
[2022-07-03 10:53] VITALS: BP 102/58
--- NOTE | 2022-07-03 12:24 | Anesthesia-General Post-Op ---
MAC Patient Condition Mental Status/LOC: Same as Preop Cardiovascular: Satisfactory Nausea/Vomiting: Absent Respiratory: Satisfactory Pain: Controlled Complications: Absent Post Op Complications Complications None Follow Up Care/Instructions Patient Instructions None needed. Anesthesiology Discharge Order Discharge Order Patient is doing well, no complaints, stable vital signs, no apparent adverse anesthesia problems. No complications reported per nursing. AGUILA RHOADES CRNA Jul 03, 2022 12:24
== END 2022-07-03 11:17 | disposition home or self-care (01) ==
LOC: ENDO 08:34
PROVIDERS: ATTEND Surgery
DX: Z12.11 Encounter for screening for malignant neoplasm of colon (principal); K57.30 Diverticulosis of large intestine without perforation or abscess without bleeding; K64.8 Other hemorrhoids; E66.01 Morbid (severe) obesity due to excess calories; Z68.37 Body mass index [BMI] 37.0-37.9, adult; Z86.010 Personal history of colon polyps; Z87.891 Personal history of nicotine dependence